=== PATIENT | female | born 1975 | race Caucasian/White ===

== ENCOUNTER 2017-02-24 13:09 | Emergency (ER) | payer OTHER ==
[~2017-02-24] VITALS: Ht 162.6 cm; Wt 54.3 kg
[~2017-02-24 13:09] MED LIST: CLEOCIN300 MG PO; FLEXERIL5 MG PO; MOTRIN600 MG PO; NAPROSYN500 MG PO; PERCOCET 5/31 TABLET PO; TRAMADOL HCL50 MG PO; TYLENOL WITH C1 EACH PO; ULTRAM50 MG PO
[2017-02-24 14:07] LABS: ADD MIUA? YES; BILIRUBIN NEGATIVE; BLOOD NEGATIVE; COLOR YELLOW ((YELLOW)); GLUCOSE (STRIP) NEGATIVE; KETONES NEGATIVE; LEUKOCYTES SMALL; NITRITE NEGATIVE; PROTEIN (STRIP) NEGATIVE; SPECIFIC GRAVITY 1.016 (1.000-1.030); UROBILINOGEN 0.2 MG/DL (0.2-1.0)
[2017-02-24 14:17] LABS: BACTERIA NONE SEEN /HPF; EPITHELIAL CELLS 2+ /HPF; MUCUS TRACE /LPF; WHITE BLOOD CELLS 0-5 /HPF (0-5)
[2017-02-24 14:26] LABS: HEMATOCRIT 42.3 % (36.0-46.0); MCH 28.8 PG (29.0-34.0); MCHC 32.6 G/DL (30.0-36.0); MCV 88.3 FL (83-99); RBC DIS.WIDTH-CV 12.5 % (11.8-14.6); RBC DIS.WIDTH-SD 40.9 % (39-53); RED BLOOD COUNT 4.79 M/uL (3.80-5.20); WHITE BLOOD COUNT 13.2 K/uL (4.1-10.2)
[2017-02-24 14:35] LABS: CHLORIDE 110 mEq/L (99-109); POTASSIUM 3.9 mEq/L (3.7-5.4); SODIUM 139 mEq/L (136-147)
[2017-02-24 14:37] LABS: GLUCOSE 102 mg/dL (70-99)
[2017-02-24 14:38] LABS: ANION GAP 9 MEQ/L (2-14)
[2017-02-24 14:41] LABS: GFR ESTIMATE (CALCULATED) > 59 mL/min/
[2017-02-24 14:42] LABS: UREA NITROGEN (BUN) 21 mg/dL (9-23)
[2017-02-24 14:51] LABS: QUANTITATIVE HCG < 4.0 MIU/ML
[2017-02-24 15:11] LABS: HEMATOLOGY COMMENT 1 SN; MEAN PLAT.VOLUME 10.7 uM^3 (9.5-12.4); PLAT.SUFFICIENCY ADEQUATE; PLATELET COUNT 361 K/uL (156-360)
[2017-02-24] MEDS ORDERED: PREDNISONE20 MG PO (15:44)
[2017-02-24] MEDS ORDERED: VIBRAMYCIN100 MG PO (15:44)
[2017-02-24] MEDS ORDERED: TESSALON PERLE100 MG PO (15:44)
[2017-02-24] MEDS ORDERED: VENTOLIN HFA18 GM IH (15:44)
[2017-02-24 16:05] VITALS: BP 135/75
== END 2017-02-24 16:07 | disposition home or self-care (01) ==
LOC: EME 13:09
PROVIDERS: Nurse Practitioner Family
DX: J45.909 Unspecified asthma, uncomplicated (principal); R05 Cough; F17.200 Nicotine dependence, unspecified, uncomplicated; Z88.6 Allergy status to analgesic agent; Z88.0 Allergy status to penicillin
CPT/HCPCS: 71020; 80048; 81003; 84702; 85027; 94640; 99281; 99285; J7512